=== PATIENT | male | born 2000 | race Caucasian/White ===

== ENCOUNTER 2021-12-23 17:05 | Emergency (ER) | payer OTHER, SELFPAY ==
[2021-12-23 17:23] VITALS: BP 146/92; PULSE 18; RESP 18; TEMP 36.9; O2SAT 100; BMI 23.3
[2021-12-23 18:00] VITALS: PULSE 78
[2021-12-23 18:19] LABS: Appearance Urine CLEAR; Color Urine YELLOW; Glucose Urine UA NEG (NEG); Leukocyte Esterase Urine NEG (NEG); Nitrite Urine NEG (NEG); PH 5.5 (5.0-8.0); Urine Blood NEG (NEG); Urine Ketones NEG (NEG); Urine Protein NEG (NEG-TRACE)
--- NOTE | 2021-12-23 19:02 | ED.MALEGU ---
HPI - Male Genitourinary General Chief complaint: Urogenital-Male Stated complaint: possible STD Time Seen by Provider: 12/23/21 18:54 Source: patient Mode of arrival: ambulatory Limitations: no limitations History of Present Illness HPI Narrative: 21-year-old male previously healthy here with reports of concern for STD. Patient tells me that he has been with the same female partner for the last 3 years. They do not use protection. He tells me that he is concerned because he has been feeling tired, has had lesions in his mouth, feels like his lymph nodes are swollen in his groin, has low back pain. He feels like the symptoms have been going on for years. He has not had any STD testing. He is here requesting STD testing. He does have a primary care doctor but tells me that he has not brought this up to that. He tells me that his partner has been tested for STDs and she is negative. Related Data Allergies Allergy/AdvReac Type Severity Reaction Status Date / Time Penicillins Allergy Hives Verified 12/23/21 17:29 Review of Systems Review of Systems: Yes all other systems are reviewed and are negative Constitutional: Constitutional: Reports no additional constitutional complaints, Denies body ache(s), Denies chills, Denies fever(s), Denies headache(s), Reports malaise and Denies weakness Eyes: Eyes: Reports no additional eye complaints and Denies change in vision ENT: Reports system reviewed and no additional complaints, except as documented, Denies dizziness, Denies headache(s), Reports mouth lesions, Denies nasal congestion, Denies nasal discharge and Denies neck pain Cardiovascular: Cardiovascular: Reports no additional cardiovascular complaints, Denies chest pain, Denies leg edema and Denies dyspnea Respiratory: Respiratory: Reports no additional respiratory complaints, Denies cough and Denies dyspnea Gastrointestinal: Gastrointestinal: Reports no additional gastrointestinal complaints, Denies abdominal pain, Denies diarrhea, Denies nausea and Denies vomiting Genitourinary: Genitourinary: Denies urinary incontinence Musculoskeletal: Musculoskeletal: Reports no additional musculoskeletal complaints, Reports back pain, Denies arthralgias, Denies joint swelling, Denies neck pain, Denies numbness and Denies tingling Integumentary/Breasts: Skin/Breast: Reports system reviewed and no additional complaints, except as docu and Denies rash Neurologic: Reports system reviewed and no additional complaints, except as documented, Denies Abnormal speech present, Denies dizziness, Denies headache(s), Denies numbness, Denies tingling and Denies weakness PMFSH Past Medical History Attestation statement: The following information was validated with the patient. Source: old records reviewed and nursing notes reviewed Social History Social History Advance Directives: No Advance Directives Information Provided: No Physical Exam Vital Signs: Vital Signs: Last Vital Signs Temp 98.5 F 12/23/21 17:23 Pulse 78 12/23/21 18:00 Resp 18 12/23/21 17:23 BP 146/92 H 12/23/21 17:23 Pulse Ox 100 12/23/21 17:23 O2 Del Method 12/23/21 17:23 BMI result Body Mass Index 23.3 Const: General: cooperative, healthy appearing, comfortable and no acute distress Orientation/consciousness: patient oriented x3 Limitations: no limitations HEENT: Head: Yes normal to inspection Ears: hearing grossly normal bilaterally and TM's normal bilaterally General nose exam: Normal external nose present Face and sinus: Yes normal facial exam Mouth: Normal oral and palatal mucosa present Throat: Yes posterior oropharynx normal, Yes tonsils normal and Yes uvula midline Eyes: General: appearance normal, both eyes and all related structures Pupils: Equal, round and reactive pupils present Neck: Neck: Yes normal visual inspection, Yes full ROM, Yes no lymphadenopathy and Yes no meningeal signs Chest: Chest palpation & inspection: normal inspection of the chest Resp: Effort & Inspection: normal respiratory effort Auscultation: clear to auscultation bilaterally Cardio: Rate: regular rate Rhythm: regular rhythm Peripheral pulses: Peripheral pulses 2+ throughout GI: Inspection: Yes normal to inspection Palpation (GI): Soft to palpation and nontender Auscultation: normal bowel sounds : Other: exam deferred by patient I do not appreciated any inguinal lymphadenopathy-alin catherine present Back/Spine/Pelvis: Thoracic/Lumbar Spine: thoracic and lumbar spine normal to inspection Skin: General skin exam: no rashes or lesions noted Neuro: General: patient oriented x3, no meningeal signs, no focal motor deficits and normal sensation to monofilament Cranial nerves: Yes Equal, round and reactive pupils present Cognition (Neuro): normal cognition Speech: No Abnormal speech present Gait exam (Neuro): Normal gait present Motor exam (neuro): 5/5 motor strength present throughout Extrem: General: Yes normal to inspection Course Course Course Narrative: Labs are unremarkable. All STI testing is pending. Patient does not want a be treated until he knows his results are. He is aware he will need to return if his testing is positive. Reviewed worrisome signs and symptoms of when to return to the emergency department. Comfortable discharge home. MDM - Male Genitourinary MDM Narrative Medical decision making narrative: 21-year-old male healthy here seeking testing for STDs. Patient tells me that he has had intermittent oral lesions, back pain, flu-like symptoms, swollen lymph nodes in the groin for the last few years. He is sexually active with 1 female partner and tells me that she has been tested for STDs and has a negative. He has never been tested and has not seen his primary care doctor for these complaints. His exam is benign. His vitals are stable. Overall well appearing Will send labs, HIV, HSV, CT NG testing Medical Records Attestation: I reviewed the patient's medical records. Lab Data Attestation: I reviewed the patient's lab results. Result diagrams: 12/23/21 19:20 12/23/21 19:20 Labs: Lab Results 12/23/21 12/23/21 12/23/21 Range/Units 17:43 19:20 19:20 WBC 5.9 (4.8-10.8) X10*3/uL RBC 4.89 (4.60-5.80) X10*6/uL Hgb 14.1 (14.0-18.0) g/dl Hct 40.1 L (42.0-52.0) % MCV 82.0 (80.0-98.0) fL MCH 28.8 (27.0-33.0) pg MCHC 35.2 (31.0-36.0) g/dl RDW 11.8 (11.0-16.0) % Plt Count 193 (160-400) X10*3/uL MPV 9.6 (9.4-12.4) fL Immature Gran % (Auto) 0.2 (0.0-0.4) % Neut % (Auto) 61.8 (45-73) % Lymph % (Auto) 31.8 (20-40) % [place] % (Auto) 5.3 (2-11) % Eos % (Auto) 0.7 (0-4) % Baso % (Auto) 0.2 (0-2) % Lymph # (Auto) 1.9 (1.2-4.9) X10*3/uL [place] # (Auto) 0.3 (0.1-1.2) X10*3/uL Eos # (Auto) 0.0 (0.0-0.4) X10*3/uL Baso # (Auto) 0.0 (0.0-0.2) X10*3/uL Abs Immat Gran (auto) 0.01 (0.00-0.03) X10*3/uL Absolute Neuts (auto) 3.6 (2.0-8.3) x10*3/uL Absolute Nucleated RBC 0.000 (0.0-0.012) X10*3/uL Nucleated RBC % (auto) 0.0 (0.0-0.2) /100WBC Sodium 138 (135-145) mmol/L Potassium 3.8 (3.3-5.1) mmol/L Chloride 104 (96-108) mmol/L Carbon Dioxide 23 (22-29) mmol/L Anion Gap 15 (12-20) BUN 6 L (9-16) mg/dL Creatinine 0.96 (0.5-1.4) mg/dL Estim Creat Clear Calc 133.5 Estimated GFR > 60 Random Glucose 91 (60-115) mg/dL Calcium 9.4 (8.4-10.2) mg/dL Total Bilirubin 1.7 H (0.0-1.0) mg/dL Direct Bilirubin 0.6 H (0.0-0.5) mg/dL AST 15 (5-37) U/L ALT 12 (0-40) U/L Alkaline Phosphatase 65 (39-117) U/L Total Protein 7.8 (6.5-8.0) g/dL Albumin 5.0 (3.5-5.0) g/dL Urine Color YELLOW Urine Appearance CLEAR Urine pH 5.5 (5.0-8.0) Ur Specific [place] 1.010 (1.005-1.025) Urine Protein NEG (NEG-TRACE) MG/DL Urine Glucose (UA) NEG (NEG) MG/DL Urine Ketones NEG (NEG) MG/DL Urine Blood NEG (NEG) Urine Nitrite NEG (NEG) Ur Leukocyte Esterase NEG (NEG) Discharge Plan Discharge Clinical Impression: Concern about STD in male without diagnosis Patient Disposition: Home, Self-Care Instructions: Sexually Transmitted Diseases (ED) Additional Instructions: We will not have results from your testing for a few days. We will call you if these are positive. Please follow-up with your primary care doctor if your results are negative so that they may evaluate for other causes of your symptoms Referrals: Physician,Jessica J [Primary Care Provider] - Interventions: ED Discharge Assessment Last Done: 12/23/21 20:37 Discharge Date/Time: 12/23/21 20:42
[2021-12-23 19:26] LABS: MANUAL DIFF FLAG NO
[2021-12-23 19:27] LABS: Basophils Percent Auto 0.2 % (0-2); Eosinophils Percent Auto 0.7 % (0-4); Hematocrit 40.1 % (42.0-52.0); Hemoglobin 14.1 g/dl (14.0-18.0); Imm Gran Abs Auto 0.01 X10*3/uL (0.00-0.03); Imm Gran Pct Auto 0.2 % (0.0-0.4); Lymphocytes Absolute Auto 1.9 X10*3/uL (1.2-4.9); Lymphocytes Percent Auto 31.8 % (20-40); Mean Corpuscular HGB Conc 35.2 g/dl (31.0-36.0); Mean Corpuscular Hemoglobin 28.8 pg (27.0-33.0); Mean Platelet Volume 9.6 fL (9.4-12.4); Monocytes Absolute Auto 0.3 X10*3/uL (0.1-1.2); Monocytes Percent Auto 5.3 % (2-11); Neutrophils Absolute Auto 3.6 x10*3/uL (2.0-8.3); Neutrophils Percent Auto 61.8 % (45-73); Platelet Count 193 X10*3/uL (160-400); Red Blood Count 4.89 X10*6/uL (4.60-5.80); Red Cell Distribution Width 11.8 % (11.0-16.0); White Blood Count 5.9 X10*3/uL (4.8-10.8)
[2021-12-23 19:43] LABS: Alanine Aminotransferase 12 U/L (0-40); Alkaline Phosphatase 65 U/L (39-117); Anion Gap 15 (12-20); Aspartate Amino Transferase 15 U/L (5-37); Bilirubin Direct 0.6 mg/dL (0.0-0.5); Bilirubin Total 1.7 mg/dL (0.0-1.0); Blood Urea Nitrogen 6 mg/dL (9-16); Calcium 9.4 mg/dL (8.4-10.2); Carbon Dioxide 23 mmol/L (22-29); Chloride 104 mmol/L (96-108); Creatinine Clr Calc Pharmacy 133.5; Estimated Glomerular Filt Rate > 60; Glucose Random 91 mg/dL (60-115); Potassium 3.8 mmol/L (3.3-5.1); Sodium 138 mmol/L (135-145); Total Protein 7.8 g/dL (6.5-8.0)
[2021-12-24 10:34] LABS: CT PCR NOT DETECTED (Not Detect.); NG PCR NOT DETECTED (Not Detect.)
[2021-12-25 04:29] LABS: HIV AB/AG Nonreactive (Nonreactive); HIV Num 1 0.13 S/CO (0.00-0.99)
[2022-01-03 15:52] LABS: HSV 1 IgM IFA Negative (Negative); HSV 2 IgM IFA Negative (Negative)
== END 2021-12-23 20:42 | disposition home or self-care (01) ==
PROVIDERS: Nurse Practitioner Family; Emergency Provider Emergency Medicine
DX: Z20.2 Contact with and (suspected) exposure to infections with a predominantly sexual mode of transmission (principal); M54.50 Low back pain, unspecified; Z79.899 Other long term (current) drug therapy
CPT/HCPCS: 36415; 80048; 80076; 81003; 85025; 86695; 86696; 87389; 87491; 87591; 99283

== ENCOUNTER 2021-12-24 06:11 | Emergency (ER) | payer OTHER, SELFPAY ==
[2021-12-24 06:15] VITALS: BP 137/74; PULSE 90; RESP 20; TEMP 37.3; O2SAT 100; BMI 23.7
--- NOTE | 2021-12-24 08:08 | ED_ITS ---
HPI - Dental/Oral General Chief complaint: Dental/Oral Stated complaint: lump inside of mouth x3 months Time Seen by Provider: 12/24/21 07:51 Source: patient Mode of arrival: ambulatory Limitations: no limitations History of Present Illness HPI Narrative: 21-year-old male who presents emergency department for evaluation a blister to his right upper gum area. He states that this blister is been there for approxi mately 3 months. He states that it has not been painful. He was seen yesterday in the emergency department for concerns of STD. In reviewing the record, the patient has had the same sexual partner for 3 years but he was concerned that he was feeling tired, had lesions in his mouth, he had lumps in his groin area. The patient had HIV, HSV and GC and chlamydia testing. He did not have any treatment. He states that he neglected to point out the lesion on his gum therefore came back to the emergency department for re-evaluation. Related Data Previous Rx's Medication Instructions Recorded valacyclovir 1 gram tablet 2,000 mg PO Q12H 1 day #4 tabs 12/24/21 (Valtrex) Allergies Allergy/AdvReac Type Severity Reaction Status Date / Time Penicillins Allergy Hives Verified 12/24/21 06:18 Review of Systems Review of Systems: Yes all other systems are reviewed and are negative [facility] Past Medical History [facility] Narrative: past medical history: Seasonal allergies. Social history: The patient states that he does not use tobacco products. He did vape nicotine for approximately 6 years but stopped recently. He denies using chewed tobacco or smoking a pipe. He denies alcohol use. Social History Social History Advance Directives: No Physical Exam Vital Signs: Vital Signs: Last Vital Signs Temp 99.1 F 12/24/21 06:15 Pulse 90 12/24/21 06:15 Resp 20 12/24/21 06:15 BP 137/74 12/24/21 06:15 Pulse Ox 100 12/24/21 06:15 O2 Del Method 12/24/21 06:15 BMI result Body Mass Index 23.7 Const: Other: Awake, alert, male patient, he does not appear to be in distress very pleasant and cooperative HEENT: Other: head is normal cephalic and atraumatic, pupils were equal round reactive light, sclera contact however normal, mouth revealed moist membranes with no erythema or exudates, the patient does have ulcerative like lesion to the right upper gumline, there are no other lesions in his mouth. Patient's neck is supple with no adenopathy. Course Course Course Narrative: 21-year-old male who presents emergency department for evaluation of a lesion on his right upper gumline which is been there for 3 months. Patient's examination did reveal a ulcerative lesion which I believe is consistent with a herpes virus and I did discuss this with him. The patient was started on valacyclovir 2000 mg twice a day for 1 day. Told him that this should help the lesion go away within 1 week and if he continues to have the lesion is concerned he should follow-up with a dentist or oral surgeon for re-evaluation. He was given printed and verbal instructions and discharged home. the patient's STD workup from yesterday is pending. Discharge Plan Discharge Clinical Impression: Cold sore Patient Disposition: Home, Self-Care Additional Instructions: Take valacyclovir 1000 mg pills, 2 pills every 12 hours for 1 day. This should make the blister go away in 1 week. If the blister continues you can follow-up with a dentist or oral surgeon for re-evaluation. Prescriptions: New valacyclovir [Valtrex] 1 gram tablet 2,000 mg PO Q12H 1 Days Qty: 4 0RF
[2021-12-24 08:25] VITALS: BP 130/83; PULSE 85; RESP 18; O2SAT 98
== END 2021-12-24 08:34 | disposition home or self-care (01) ==
PROVIDERS: Emergency Provider Emergency Medicine Emergency Medical Services
DX: B00.1 Herpesviral vesicular dermatitis (principal)
CPT/HCPCS: 99283; 99284

== ENCOUNTER 2021-12-25 04:46 | Emergency (ER) | payer OTHER, SELFPAY ==
--- NOTE | ~2021-12-25 | US_ITS ---
EXAMINATION: US ABDOMEN LIMITED CLINICAL INFORMATION: Elevated liver function tests. COMPARISON: None TECHNIQUE: Real-time imaging of the right upper quadrant abdominal viscera. FINDINGS: PANCREAS: Normal. LIVER: Normal. The liver is normal in size. The liver contour is normal. Parenchymal echogenicity is normal. No focal hepatic lesion. There is no intrahepatic biliary duct dilatation seen. GALLBLADDER: Normal. The gallbladder is physiologically distended without evidence of stones, sludge, polyps, wall thickening or pericholecystic fluid. COMMON BILE DUCT: Normal in caliber measuring 0.3 cm in diameter. RIGHT KIDNEY: Normal. No hydronephrosis. No renal calculi or focal parenchymal lesions. The kidney measures 11.9 cm in maximum dimension. Small extrarenal pelvis. FREE FLUID: None. US/US abdomen limited IMPRESSION: Unremarkable right upper quadrant ultrasound.
[2021-12-25 04:58] VITALS: BP 126/86; PULSE 69; RESP 18; TEMP 36.5; O2SAT 100; BMI 23.3
[2021-12-25 05:15] LABS: Appearance Urine CLEAR; Color Urine YELLOW; Glucose Urine UA NEG (NEG); Leukocyte Esterase Urine NEG (NEG); Nitrite Urine NEG (NEG); Specific Gravity - Urine <= 1.005 (1.005-1.025); Urine Blood NEG (NEG); Urine Ketones NEG (NEG); Urine Protein NEG (NEG-TRACE)
[2021-12-25 05:23] LABS: Bacteria Urine TRACE /LPF; RBC Urine 0-2 /HPF (0); Squamous Epithelial Cell Urine TRACE /LPF; WBC Urine 0-2 /HPF (0-4)
--- NOTE | 2021-12-25 05:27 | ED.GENADULT ---
HPI - General Adult General Chief complaint: General Medical Stated complaint: R kidney pain post meds Time Seen by Provider: 12/25/21 04:52 Source: patient Mode of arrival: ambulatory Limitations: no limitations History of Present Illness HPI narrative: Patient comes to the emergency room complaining of right-sided flank pain. Patient states it started yesterday, no history of kidney stones. Patient states that he read that his prescription of acyclovir which was prescribed couple of days ago, in him sick. Patient comes in the list of side effects of the medications, states that his paper said that acyclovir can cause life-threatening conditions. Patient has no symptoms whatsoever. Patient seems very anxious. The patient had HIV, HSV and GC and chlamydia testing 2 days ago. Related Data Previous Rx's Medication Instructions Recorded valacyclovir 1 gram tablet 2,000 mg PO Q12H 1 day #4 tabs 12/24/21 (Valtrex) Allergies Allergy/AdvReac Type Severity Reaction Status Date / Time Penicillins Allergy Hives Verified 12/24/21 06:18 Review of Systems Review of Systems: Constitutional : No Weight loss, No Fever, No Chills, No Night Sweats, No Fatigue, No Malaise ENT/Mouth : No Hearing loss, No Ear Pain, No Nasal Congestion, No Sinus Pain, No Hoarseness, No sore throat, No Rhinorrhea, No Swallowing Difficulty Eyes: No Eye Pain, No Swelling, No Redness, No Foreign Body, No Discharge, No Vision Changes Cardiovascular : No Chest Pain, No SOB, No Dyspnea on Exertion, No Orthopnea, No Edema, No Palpitations Respiratory : No Cough, No Sputum, No Wheezing, No Smoke Exposure, No Dyspnea Gastrointestinal : No Nausea, No Vomiting, No Diarrhea, No Constipation, No abdominal Pain, No Hematochezia, No Melena Genitourinary : no irregular bleeding, No Dysuria, No Urinary Frequency, No Hematuria, No Urinary Incontinence, No Urgency, No Flank Pain, No Urinary Flow Changes, No Hesitancy Musculoskeletal : No joint pain, No Myalgias, No Joint Swelling, complaining of right-sided flank Skin : No Skin Lesions, No rash Neuro : No Weakness, No Numbness, No Paresthesias, No Loss of Consciousness, No Dizziness, No Headache Psych : No Anxiety/Panic, No Depression, No SI/HI/AH/VH, No Social Issues, Heme/Lymph: No Bruising, No Bleeding,No Lymphadenopathy Endocrine : No Polyuria, No Polydipsia, No Temperature Intolerance [facility] Social History Social History Alcohol intake: former Patient Tobacco Use Status: Current everyday Tobacco user Advance Directives: No Advance Directives Information Provided: Yes Physical Exam ED Vital Signs: Vital Signs - 24 hr 12/25/21 04:58 12/25/21 06:52 Temperature 97.7 F 98.6 F Pulse Rate 69 72 Respiratory Rate 18 16 Blood Pressure 126/86 120/80 Pulse Oximetry 100 95 Oxygen Delivery Method Room Air Room Air BMI result Body Mass Index 23.3 Const Other: Appearance: Alert. Oriented X3. No acute distress. Eyes: Pupils equal, round and reactive to light. ENT: Pharynx normal. Neck: Normal inspection. Neck supple. No lymph nodes noted. No crepitus CVS: Normal heart rate and rhythm. Pulses normal. Normal S1 and S2 Respiratory: No respiratory distress. Breath sounds normal. No Wheezing. No rales Abdomen: Soft and nontender. No rigidity. No distention. Skin: Skin warm and dry. Palel skin color. Normal skin turgor. Extremities: No lower extremity edema. No Lacerations. No Rash Neuro: Oriented X 3. No motor deficit. No sensory deficit. Moving all extremities. No slurred speech. CN 2 through 12 grossly intact Psych: calm, cooperative, flat affect, very anxious Course Course Course Narrative: Patient is concerned that he is developing a life-threatening condition from taking valacyclovir . Patient read this in his medication's description that the pharmacy provides Patient is requesting that we test him for every existing viral infection and bacterial infection. Also, patient asked his nurse if his father can donate blood/antibodies and transfuse them into him to make him feel better. Patient asking how many people come to the emergency room with kidney stones after starting the acyclovir a day prior Patient's urine and labs are pending. At this time, it seems that patient's symptoms are triggered by anxiety. Herpes simplex virus test pending, negative for mononucleosis, HIV nonreactive, gonorrhea not detected. Patient's T bili is elevated, AST ALT is within normal limits. Patient does not have any right upper quadrant pain. This is likely Guilbert Sx. We will go ahead and order an ultrasound Patient would benefit froma [facility] evaluation for anxiety Sign out given to Dr. Hein. Medical Decision Making Lab Data Result diagrams: 12/25/21 05:33 12/25/21 05:33 Labs: Lab Results 12/25/21 12/25/21 12/25/21 Range/Units 05:09 05:09 05:33 WBC 4.7 L (4.8-10.8) X10*3/uL RBC 5.08 (4.60-5.80) X10*6/uL Hgb 14.5 (14.0-18.0) g/dl Hct 40.9 L (42.0-52.0) % MCV 80.5 (80.0-98.0) fL MCH 28.5 (27.0-33.0) pg MCHC 35.5 (31.0-36.0) g/dl RDW 11.5 (11.0-16.0) % Plt Count 184 (160-400) X10*3/uL MPV 9.3 L (9.4-12.4) fL Immature Gran % (Auto) 0.2 (0.0-0.4) % Neut % (Auto) 44.7 L (45-73) % Lymph % (Auto) 46.7 H (20-40) % [place] % (Auto) 6.9 (2-11) % Eos % (Auto) 1.3 (0-4) % Baso % (Auto) 0.2 (0-2) % Lymph # (Auto) 2.2 (1.2-4.9) X10*3/uL [place] # (Auto) 0.3 (0.1-1.2) X10*3/uL Eos # (Auto) 0.1 (0.0-0.4) X10*3/uL Baso # (Auto) 0.0 (0.0-0.2) X10*3/uL Abs Immat Gran (auto) 0.01 (0.00-0.03) X10*3/uL Absolute Neuts (auto) 2.1 (2.0-8.3) x10*3/uL Absolute Nucleated RBC 0.000 (0.0-0.012) X10*3/uL Nucleated RBC % (auto) 0.0 (0.0-0.2) /100WBC Sodium (135-145) mmol/L Potassium (3.3-5.1) mmol/L Chloride (96-108) mmol/L Carbon Dioxide (22-29) mmol/L Anion Gap (12-20) BUN (9-16) mg/dL Creatinine (0.5-1.4) mg/dL Estim Creat Clear Calc Estimated GFR Random Glucose (60-115) mg/dL Calcium (8.4-10.2) mg/dL Total Bilirubin (0.0-1.0) mg/dL Direct Bilirubin (0.0-0.5) mg/dL AST (5-37) U/L ALT (0-40) U/L Alkaline Phosphatase (39-117) U/L Total Protein (6.5-8.0) g/dL Albumin (3.5-5.0) g/dL Urine Color YELLOW Urine Appearance CLEAR Urine pH 7.0 (5.0-8.0) Ur Specific [place] <= 1.005 (1.005-1.025) Urine Protein NEG (NEG-TRACE) MG/DL Urine Glucose (UA) NEG (NEG) MG/DL Urine Ketones NEG (NEG) MG/DL Urine Blood NEG (NEG) Urine Nitrite NEG (NEG) Ur Leukocyte Esterase NEG (NEG) Urine RBC 0-2 (0) /HPF Urine WBC 0-2 (0-4) /HPF Ur Squamous Epith Cells TRACE /LPF Urine Bacteria TRACE /LPF Urine Opiates Screen Not Detected (Not Detect) Urine Fentanyl Screen Not Detected (Not Detect) Ur Barbiturates Screen Not Detected (Not Detect) Ur Phencyclidine Scrn Not Detected (Not Detect) Ur Amphetamines Screen Not Detected (Not Detect) U Benzodiazepines Scrn Not Detected (Not Detect) Urine Cocaine Screen Not Detected (Not Detect) U Marijuana (THC) Screen Not Detected (Not Detect) Monoscreen (Negative) 12/25/21 12/25/21 Range/Units 05:33 05:33 WBC (4.8-10.8) X10*3/uL RBC (4.60-5.80) X10*6/uL Hgb (14.0-18.0) g/dl Hct (42.0-52.0) % MCV (80.0-98.0) fL MCH (27.0-33.0) pg MCHC (31.0-36.0) g/dl RDW (11.0-16.0) % Plt Count (160-400) X10*3/uL MPV (9.4-12.4) fL Immature Gran % (Auto) (0.0-0.4) % Neut % (Auto) (45-73) % Lymph % (Auto) (20-40) % [place] % (Auto) (2-11) % Eos % (Auto) (0-4) % Baso % (Auto) (0-2) % Lymph # (Auto) (1.2-4.9) X10*3/uL [place] # (Auto) (0.1-1.2) X10*3/uL Eos # (Auto) (0.0-0.4) X10*3/uL Baso # (Auto) (0.0-0.2) X10*3/uL Abs Immat Gran (auto) (0.00-0.03) X10*3/uL Absolute Neuts (auto) (2.0-8.3) x10*3/uL Absolute Nucleated RBC (0.0-0.012) X10*3/uL Nucleated RBC % (auto) (0.0-0.2) /100WBC Sodium 135 (135-145) mmol/L Potassium 4.0 (3.3-5.1) mmol/L Chloride 100 (96-108) mmol/L Carbon Dioxide 27 (22-29) mmol/L Anion Gap 12 (12-20) BUN 8 L (9-16) mg/dL Creatinine 0.98 (0.5-1.4) mg/dL Estim Creat Clear Calc 130.8 Estimated GFR > 60 Random Glucose 107 (60-115) mg/dL Calcium 9.6 (8.4-10.2) mg/dL Total Bilirubin 2.8 H (0.0-1.0) mg/dL Direct Bilirubin 0.6 H (0.0-0.5) mg/dL AST 11 (5-37) U/L ALT 10 (0-40) U/L Alkaline Phosphatase 64 (39-117) U/L Total Protein 7.6 (6.5-8.0) g/dL Albumin 5.0 (3.5-5.0) g/dL Urine Color Urine Appearance Urine pH (5.0-8.0) Ur Specific [place] (1.005-1.025) Urine Protein (NEG-TRACE) MG/DL Urine Glucose (UA) (NEG) MG/DL Urine Ketones (NEG) MG/DL Urine Blood (NEG) Urine Nitrite (NEG) Ur Leukocyte Esterase (NEG) Urine RBC (0) /HPF Urine WBC (0-4) /HPF Ur Squamous Epith Cells /LPF Urine Bacteria /LPF Urine Opiates Screen (Not Detect) Urine Fentanyl Screen (Not Detect) Ur Barbiturates Screen (Not Detect) Ur Phencyclidine Scrn (Not Detect) Ur Amphetamines Screen (Not Detect) U Benzodiazepines Scrn (Not Detect) Urine Cocaine Screen (Not Detect) U Marijuana (THC) Screen (Not Detect) Monoscreen Negative (Negative) Discharge Plan Discharge Clinical Impression: Anxiety Patient Disposition: Still a Patient Prescriptions: No Action valacyclovir [Valtrex] 1 gram tablet 2,000 mg PO Q12H 1 Days Qty: 4 0RF
[2021-12-25 05:29] LABS: Amphetamine Screen Urine Not Detected (Not Detect); Barbiturates, Urine Not Detected (Not Detect); Benzodiazepines Screen Urine Not Detected (Not Detect); Cannabinoid Screen Urine Not Detected (Not Detect); Cocaine Screen Urine Not Detected (Not Detect); Fentanyl, urine Not Detected (Not Detect); Opiate Screen Urine Not Detected (Not Detect); Phencyclidine Screen Urine Not Detected (Not Detect)
[2021-12-25 05:37] LABS: Basophils Percent Auto 0.2 % (0-2); Eosinophils Absolute Auto 0.1 X10*3/uL (0.0-0.4); Eosinophils Percent Auto 1.3 % (0-4); Hematocrit 40.9 % (42.0-52.0); Hemoglobin 14.5 g/dl (14.0-18.0); Imm Gran Abs Auto 0.01 X10*3/uL (0.00-0.03); Imm Gran Pct Auto 0.2 % (0.0-0.4); Lymphocytes Absolute Auto 2.2 X10*3/uL (1.2-4.9); Lymphocytes Percent Auto 46.7 % (20-40); MANUAL DIFF FLAG NO; Mean Corpuscular HGB Conc 35.5 g/dl (31.0-36.0); Mean Corpuscular Hemoglobin 28.5 pg (27.0-33.0); Mean Corpuscular Volume 80.5 fL (80.0-98.0); Mean Platelet Volume 9.3 fL (9.4-12.4); Monocytes Absolute Auto 0.3 X10*3/uL (0.1-1.2); Monocytes Percent Auto 6.9 % (2-11); Neutrophils Absolute Auto 2.1 x10*3/uL (2.0-8.3); Neutrophils Percent Auto 44.7 % (45-73); Platelet Count 184 X10*3/uL (160-400); Red Blood Count 5.08 X10*6/uL (4.60-5.80); Red Cell Distribution Width 11.5 % (11.0-16.0); White Blood Count 4.7 X10*3/uL (4.8-10.8)
[2021-12-25 05:59] LABS: Alanine Aminotransferase 10 U/L (0-40); Alkaline Phosphatase 64 U/L (39-117); Anion Gap 12 (12-20); Aspartate Amino Transferase 11 U/L (5-37); Bilirubin Direct 0.6 mg/dL (0.0-0.5); Bilirubin Total 2.8 mg/dL (0.0-1.0); Blood Urea Nitrogen 8 mg/dL (9-16); Calcium 9.6 mg/dL (8.4-10.2); Carbon Dioxide 27 mmol/L (22-29); Chloride 100 mmol/L (96-108); Creatinine Clr Calc Pharmacy 130.8; Estimated Glomerular Filt Rate > 60; Glucose Random 107 mg/dL (60-115); Sodium 135 mmol/L (135-145); Total Protein 7.6 g/dL (6.5-8.0)
[2021-12-25 06:15] LABS: Monotest Negative (Negative)
[2021-12-25 06:52] VITALS: BP 120/80; PULSE 72; RESP 16; TEMP 37; O2SAT 95
--- NOTE | 2021-12-25 07:07 | PC.NURSE ---
portal ultrasound at bedside, pt aware of plan of care.
== END 2021-12-25 07:53 | disposition home or self-care (01) ==
PROVIDERS: Emergency Provider Emergency Medicine
DX: R10.31 Right lower quadrant pain (principal); F41.1 Generalized anxiety disorder; F43.0 Acute stress reaction; F17.200 Nicotine dependence, unspecified, uncomplicated; Z79.899 Other long term (current) drug therapy; Z71.6 Tobacco abuse counseling
CPT/HCPCS: 36415; 76705; 80048; 80076; 80307; 81001; 85025; 86308; 99284

== ENCOUNTER 2022-01-26 11:34 | Emergency (ER) | payer OTHER, SELFPAY ==
--- NOTE | ~2022-01-26 | XR_ITS ---
EXAMINATION: XR first, LEFT CLINICAL INFORMATION: Hit thumb with hammer COMPARISON: None TECHNIQUE: 4 views of the left first finger. FINDINGS: There is no evidence of acute fracture or dislocation of the left first finger. Joint spaces are maintained. There is some soft tissue swelling present. XR/XR finger LT min 2V IMPRESSION: No acute fracture of the left first finger identified.
[2022-01-26 12:09] VITALS: BP 132/61; PULSE 97; RESP 20; TEMP 37.1; O2SAT 98; BMI 23.4
--- NOTE | 2022-01-26 12:22 | ED.EXTPRO ---
HPI - Extremity Problem General Chief complaint: Extremity Problem Stated complaint: smashed thumb Lhand Time Seen by Provider: 01/26/22 12:21 Source: patient Mode of arrival: ambulatory Limitations: no limitations History of Present Illness HPI Narrative: 21-year-old right-handed male who smashed the tip of his left thumb wall hammering this morning. Tip of left thumb is painful. No numbness or tingling. Related Data Previous Rx's Medication Instructions Recorded valacyclovir 1 gram tablet 2,000 mg PO Q12H 1 day #4 tabs 12/24/21 (Valtrex) ibuprofen 600 mg tablet 600 mg PO TID 14 days #42 tabs 01/26/22 Allergies Allergy/AdvReac Type Severity Reaction Status Date / Time Penicillins Allergy Hives Verified 12/24/21 06:18 Review of Systems Constitutional: Constitutional: Denies body ache(s), Denies chills, Denies fatigue, Denies fever(s), Denies malaise and Denies weakness Eyes: Eyes: Denies diplopia Cardiovascular: Cardiovascular: Denies chest pain, Denies syncope, Denies leg edema, Denies lightheadedness, Denies Loss of Consciousness, Denies palpitations and Denies dyspnea Respiratory: Respiratory: Denies chest congestion, Denies cough and Denies dyspnea Gastrointestinal: Gastrointestinal: Denies abdominal pain, Denies hematochezia, Denies constipation, Denies diarrhea and Denies vomiting Musculoskeletal: Musculoskeletal: Denies deformity, Denies limited range of motion, Denies numbness and Denies tingling Comments: Left thumb pain Neurologic: Denies confusion, Denies syncope, Denies numbness, Denies tingling and Denies weakness Psychiatric: Psychiatric: Denies anxiety, Denies confusion and Denies depression Endocrine: Endocrine: Denies fatigue and Denies palpitations PMFSH Social History Social History Alcohol intake: never Patient Tobacco Use Status: Never used Tobacco Advance Directives: No Advance Directives Information Provided: No Physical Exam Vital Signs: Vital Signs: Last Vital Signs Temp 98.7 F 01/26/22 12:09 Pulse 97 01/26/22 12:09 Resp 20 01/26/22 12:09 BP 132/61 01/26/22 12:09 Pulse Ox 98 01/26/22 12:09 O2 Del Method 01/26/22 12:09 BMI result Body Mass Index 23.4 Const: General: No confusion Nutritional Appearance: well nourished Orientation/consciousness: No confusion Limitations: no limitations Eyes: Conjunctivae: conjunctivae normal Pupils: Equal, round and reactive pupils present EOM: EOMs intact bilaterally Neck: Neck: Yes full ROM, Yes no lymphadenopathy and Yes supple Resp: Effort & Inspection: normal respiratory effort and able to speak in complete sentences Auscultation: clear to auscultation bilaterally, no crackles, no rales, no rhonchi and no wheezes Cardio: Rate: regular rate Rhythm: regular rhythm Heart sounds: S1 normal heart sound present and S2 normal heart sound present Skin: Other: Tip of left thumb mildly swollen, mild subungual hematoma of lower 3rd thumbnail Trauma: other Neuro: General: No confusion Cranial nerves: Yes Equal, round and reactive pupils present Extrem: Left upper extremity: full ROM and hand Details: normal capillary refill, neuromotor exam normal, neurosensory exam normal, tendon exam normal and swelling Location: of the thumb Location: at the distal phalanx and involving the fingernail Hand/finger images: 1. 2. Subungual hematoma Psych: Appearance: grossly normal Affect: normal affect Attitude: cooperative Thought process: Normal thought process present Course Course Course Narrative: 21-year-old male who smashed his left thumb with hammer just prior to arrival has left thumb pain and subungual hematoma. Patient has full range of motion of his thumb, he can push against my finger and flex and extend his thumb against resistance. Patient has nose is stuffed box tenderness, no IP joint or MCP joint tenderness of his left thumb. Patient has mild redness and swelling of left thumb. Patient's last tetanus was 2011. Will get x-ray, tetanus vaccination, trephinate, treat with antibiotics, and if this is a tuft fracture will splint and have patient follow-up with hand surgeon Reevaluation(s) Reevaluation #1: No fracture. Patient refuses tetanus, and trephination. Patient repeatedly questions my medical advice. He would like pain medication. Will send home with ibuprofen and gave return precautions of worsening pain, worsening bleeding under the nail, redness, swelling, warmth, return to emergency room FINDINGS: There is no evidence of acute fracture or dislocation of the left first finger. Joint spaces are maintained. There is some soft tissue swelling present.? XR/XR finger LT min 2V IMPRESSION: No acute fracture of the left first finger identified. ? Discharge Plan Discharge Clinical Impression: Hematoma, subungual, finger, left Patient Disposition: Home, Self-Care Additional Instructions: You have refused my medical advice of a tetanus vaccination and trephination of your finger nail today. I have prescribed ibuprofen to your pharmacy. Please return if you have worsening left thumb pain, swelling, or warmth. Prescriptions: New ibuprofen 600 mg tablet 600 mg PO TID 14 Days Qty: 42 0RF No Action valacyclovir [Valtrex] 1 gram tablet 2,000 mg PO Q12H 1 Days Qty: 4 0RF
[2022-01-26] MEDS: Acetaminophen 325 MG TABLET 975 MG PO (12:58)
[2022-01-26] MEDS: Ibuprofen 800 MG TABLET PO (12:59)
== END 2022-01-26 14:13 | disposition home or self-care (01) ==
PROVIDERS: Emergency Provider Emergency Medicine Emergency Medical Services; PCP Internal Medicine
DX: S60.112A Contusion of left thumb with damage to nail, initial encounter (principal); W22.8XXA Striking against or struck by other objects, initial encounter; Y93.E9 Activity, other interior property and clothing maintenance; Y92.019 Unspecified place in single-family (private) house as the place of occurrence of the external cause; Y99.9 Unspecified external cause status
CPT/HCPCS: 73140; 90471; 99283; 99284